=== PATIENT | male | born 1985 | race Caucasian/White ===

== ENCOUNTER → 2018-05-25 | Day surgery (SDC) | payer BC ==
[~2018-05-25] MED LIST: FENTANYL CITRATE/PF 100MCG/2 ML INJ ONE; HYOSCYAMINE SULFATE 0.5 MG/ML INJ ONE; METOCLOPRAMIDE HCL 10 MG/2ML VIAL ONE; MIDAZOLAM HCL 2 MG/2 ML VIAL ONE; PROPOFOL IV EMULSION 10 MG/ML 50 ML VIAL ONE; ZOLOFT50 MG PO
[2018-05-25 10:05] VITALS: BP 104/79
--- NOTE | 2018-05-25 10:27 | Operative Report ---
DATE OF PROCEDURE: May 25, 2018 REFERRING PHYSICIAN: Dr. Misha Day PROCEDURES PERFORMED 1. Esophagogastroduodenoscopy with biopsies. 2. Colonoscopy with biopsies. INDICATIONS FOR EGD: History of heartburn and indigestion. INDICATIONS FOR COLONOSCOPY: Chronic diarrhea. MEDICATION: Patient was done under MAC. Please see anesthesiologist's note. PROCEDURE: With the patient in the left lateral decubitus position, the flexible fiberoptic Olympus gastroscope was introduced into the esophagus under direct visualization without any difficulty. There was some patchy erythema noted in the distal esophagus. A minute nodule was noted at the GE junction, and that was biopsied. The esophagus was dilated to size 52-[place]. The scope was then advanced with ease into the stomach, traversing a small sliding hiatal hernia. Mucosa overlying the antrum and the body revealed some patchy erythema and mild to moderate edema, and biopsies were obtained and sent to stain for H. pylori. Pylorus appeared to be of normal contour and shape. It was intubated with ease, and the scope was advanced all the way to the 2nd portion of the duodenum. The scope was then withdrawn slowly, and biopsies were obtained from the proximal 2nd portion to rule out sprue, considering the patient's history of diarrhea. The scope was then withdrawn back into the stomach and retroflexed. The mucosa overlying the fundus and the cardia appeared to be within normal limits. The scope was then straightened out. Stomach was decompressed. Scope was subsequently withdrawn. Patient tolerated the procedure well. IMPRESSION 1. Distal esophagitis, mild. 2. Minute nodule at gastroesophageal junction, biopsied. 3. Esophagus dilated to size 52-[place]. 4. Small sliding hiatal hernia. 5. Gastritis, biopsied. Biopsies sent to stain for H. pylori. 6. Rule out sprue. PLAN: Follow up histology. Initiate Protonix 40 mg 1 p.o. q.a.m. a.c. The patient was then turned around. After adequate lubrication of the anal canal, a flexible fiberoptic Olympus colonoscope was inserted into the rectum with ease and advanced all the way to the cecum. The mucosa overlying the cecum appeared to be within normal limits. The ileocecal valve was intubated, and scope was advanced into the terminal ileum. Biopsies were obtained. The scope was then withdrawn back into the colon. It was then withdrawn slowly. Mucosa overlying the ascending, transverse, descending, sigmoid and rectum revealed some patchy mild inflammatory changes. Multiple random biopsies were obtained. The scope was then retroflexed into the distal rectum, and the area around the dentate line appeared to be within normal limits. The scope was then straightened out. The scope was subsequently withdrawn after securing an adequate stool specimen that was sent for the appropriate stool studies. Patient tolerated the procedure well. IMPRESSION 1. Colitis, mild, patchy. Random biopsies obtained. 2. Proctitis, mild, biopsied. PLAN: Follow up histology. Follow up stool studies. Initiate VSL #3 one p.o. daily and Bentyl 10 mg 1 p.o. t.i.d. Job#: [id number] cc:DAY DAY DO
[2018-05-25 13:04] LABS: C DIFFICILE TOXIN A&B AMP PROB NEGATIVE (NEGATIVE); WBC,FECAL (FECAL LACTOFERRIN) NEGATIVE (NEGATIVE)
== END | disposition home or self-care (01) ==
LOC: OR 06:25
PROVIDERS: ATTEND Internal Medicine Gastroenterology
DX: K29.70 Gastritis, unspecified, without bleeding (principal); K52.9 Noninfective gastroenteritis and colitis, unspecified; K20.9 Esophagitis, unspecified; K22.8 Other specified diseases of esophagus; K44.9 Diaphragmatic hernia without obstruction or gangrene; K62.89 Other specified diseases of anus and rectum; F41.9 Anxiety disorder, unspecified
CPT/HCPCS: 43239; 43450; 45380; 83630; 83993; 87045; 87177; 87328; 87493; J1980; J2250; J2765; 45378